=== PATIENT | female | born 1975 | race Caucasian/White ===

== ENCOUNTER → 2020-08-31 16:43 | Outpatient (CLI) | payer OTHER, SELFPAY ==
--- NOTE | ~2020-08-31 | MM_ITS ---
EXAMINATION: MM screening osman BI w nohemi HISTORY: Screening mammogram TECHNIQUE: Craniocaudal and mediolateral oblique 3-D tomosynthesis images were obtained and synthetic 2-D images were generated. CAD analysis was submitted and interpreted. COMPARISON: 07/01/2019, 06/17/2018, 05/11/2017 bilateral digital screening mammogram examinations BREAST PARENCHYMAL COMPOSITION: The breasts are heterogeneously dense, which may obscure small masses . FINDINGS: There is no evidence of suspicious mass, calcification, or architectural distortion to sugg est malignancy in either breast. There has been no suspicious interval change. IMPRESSION: 1. No mammographic evidence of malignancy. 2. Recommend routine screening mammography in one year. BI-RADS Category 1: Negative Reviewed, dictated and finalized at location A. 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
== END ==
PROVIDERS: PCP Physician Assistant; Visit Provider Nurse Practitioner
DX: Z12.31 Encounter for screening mammogram for malignant neoplasm of breast (principal)
CPT/HCPCS: 77063; 77067

== ENCOUNTER → 2021-11-22 16:09 | Outpatient (CLI) | payer OTHER, SELFPAY ==
--- NOTE | ~2021-11-22 | MM_ITS ---
EXAMINATION: MM screening osman BI w nohemi HISTORY: Screening mammogram TECHNIQUE: Craniocaudal and mediolateral oblique 3-D tomosynthesis images were obtained and synthetic 2-D images were generated. Bilateral rotated lateral craniocaudal views. There CAD analysis was subm itted and interpreted. COMPARISON: 08/31/2020, 07/01/2019, 06/17/2018 bilateral screening mammogram examinations BREAST PARENCHYMAL COMPOSITION: The breasts are heterogeneously dense, which may obscure small masses . FINDINGS: There is no evidence of suspicious mass, calcification, or architectural distortion to sugg est malignancy in either breast. There has been no suspicious interval change. IMPRESSION: 1. No mammographic evidence of malignancy. 2. Recommend routine screening mammography in one year. BI-RADS Category 1: Negative Reviewed, dictated and finalized at location A. ER CHROME
== END ==
PROVIDERS: Visit Provider Obstetrics & Gynecology Gynecology
DX: Z12.31 Encounter for screening mammogram for malignant neoplasm of breast (principal)
CPT/HCPCS: 77063; 77067

== ENCOUNTER → 2022-09-28 08:02 | Outpatient (CLI) | payer OTHER, SELFPAY ==
--- NOTE | ~2022-09-28 | MMUS_ITS ---
EXAMINATION: MM diagnostic osman RT w nohemi, US breast RT limited HISTORY: Upper inner quadrant right breast lump TECHNIQUE: Craniocaudal, mediolateral, and mediolateral oblique 3-D tomosynthesis images with implant displacement of were performed and synthetic 2-D images were generated. Craniocaudal, mediolateral oblique, and mediolateral views of without implant displacement were obtained using full field digita l mammography. CAD analysis was submitted and interpreted. High resolution breast ultrasound was perf ormed. COMPARISON: 11/22/2021 bilateral screening mammogram 08/31/2020 bilateral screening mammogram 07/01/2019 bilateral screening mammogram BREAST PARENCHYMAL COMPOSITION: The breasts are heterogeneously dense, which may obscure small masses . FINDINGS: MAMMOGRAPHIC FINDINGS: No suspicious mass or architectural distortion, malignant calcification, skin thickening or retractio n or significant new or developing density is detected. ULTRASOUND: At 1:00 7 cm from the nipple there is an ill-defined focal area of shadowing with some associated col or flow signal.; this corresponds to the area of clinical indication of breast lump . Ultrasound-guid ed biopsy is recommended. 2:00 3 cm from nipple: Parallel circumscribed hypoechoic 3 x 8.4 x 4.1 mm lesion without internal vas cularity or posterior shadowing, benign in appearance Subareolar area: 4 x 5 x 6.2 mm cyst with through transmission posterior enhancement. Subareolar area: 2.4 x 2.7 x 3.0 mm sonolucency with through transmission consistent with simple cyst IMPRESSION: 1. Subtle ill-defined suspicious area of focal shadowing or vascularity at upper inner quadrant at 1: 00 7 cm from nipple, in the area of clinical indication of breast lump 2. Centimeters biopsy of 1:00 7 cm from nipple is recommended BI-RADS category 4, suspicious findings. Reviewed, dictated and finalized at location A. RHOUSE TENDER IMPRESSION: 1. Subtle ill-defined suspicious area of focal shadowing or vascularity at uppe r inner quadrant at 1:00 7 cm from nipple, in the area of clinical indication o f breast lump 2. Centimeters biopsy of 1:00 7 cm from nipple is recommended BI-RADS category 4, suspicious findings.
== END ==
PROVIDERS: PCP Physician Assistant; Visit Provider Advanced Practice Midwife
DX: N63.10 Unspecified lump in the right breast, unspecified quadrant (principal); R92.8 Other abnormal and inconclusive findings on diagnostic imaging of breast
CPT/HCPCS: 76642; 77061; 77065; G0279